=== PATIENT | male | born 1985 | race Caucasian/White ===

== ENCOUNTER 2022-01-28 16:08 | Emergency (ER) | payer OTHER ==
[~2022-01-28] VITALS: Ht 172.7 cm; Wt 70.0 kg
[2022-01-28 16:21] VITALS: BP 142/89
[2022-01-28] MEDS ORDERED: TAMS0.4C96 PO (16:45)
--- NOTE | 2022-01-28 16:55 | NUR ---
Patient discharged with v/s stable. Written and verbal after care instructions ABOUT TAMSUOSIN CAPSULES given and explained. Patient alert, oriented and verbalized understanding of instructions. Ambulatory with steady gait. All questions addressed prior to discharge. ID band removed. Patient advised to follow up with PMD. Rx of TAMSULOSIN given. Patient educated on indication of medication including possible reaction and side effects. Opportunity to ask questions provided and answered. Addendum: 01/28/22 at 1826 by [email or web address] ALCOHOL/SUBSTANCE ABUSE PACKET GIVEN
== END 2022-01-28 16:55 | disposition home or self-care (01) ==
LOC: MED 16:08
DX: F10.10 Alcohol abuse, uncomplicated (principal); F41.9 Anxiety disorder, unspecified; Z79.899 Other long term (current) drug therapy; Y90.9 Presence of alcohol in blood, level not specified
CPT/HCPCS: 99283

== ENCOUNTER 2022-01-28 20:02 | Emergency (ER) | payer OTHER ==
[~2022-01-28] VITALS: Ht 172.7 cm; Wt 117.0 kg
[~2022-01-28 20:02] MED LIST: TAMS0.4C96 PO
[2022-01-28 20:18] VITALS: BP 150/93
[2022-01-28 20:20] VITALS: BP 150/93
--- NOTE | 2022-01-28 22:15 | NUR ---
LWBS PER ADMITING
== END 2022-01-28 22:15 | disposition left against medical advice (07) ==
LOC: MED 20:02
DX: F41.9 Anxiety disorder, unspecified (principal); Z53.21 Procedure and treatment not carried out due to patient leaving prior to being seen by health care provider

== ENCOUNTER 2023-03-14 14:36 | Emergency (ER) | payer OTHER ==
[~2023-03-14] VITALS: Ht 170.2 cm; Wt 122.5 kg
[2023-03-14 14:45] VITALS: BP 153/109; PULSE 98; RESP 18; TEMP 98.4; O2SAT 98
[2023-03-14] MEDS ORDERED: ONDANSETRON 4 MG/2 ML VIAL IVP ONE (15:05)
[2023-03-14] MEDS ORDERED: NACL 0.9% 1,000 ML IV ONE (15:05)
[2023-03-14 15:16] VITALS: TEMP 98.4
[2023-03-14 15:22] VITALS: O2SAT 98
[2023-03-14] MEDS ORDERED: CHLO-836 PO (15:33)
[2023-03-14] MEDS ORDERED: ONDA8TAB87 PO (15:33)
[2023-03-14 16:05] VITALS: BP 140/79; PULSE 80; RESP 21; O2SAT 95
== END 2023-03-14 16:05 | disposition home or self-care (01) ==
LOC: MED 14:36
DX: F10.239 Alcohol dependence with withdrawal, unspecified (principal); F41.9 Anxiety disorder, unspecified; Y90.9 Presence of alcohol in blood, level not specified
CPT/HCPCS: 96374; 99283; J2405; J7030